=== PATIENT | female | born 2000 | race Caucasian/White ===

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

== ENCOUNTER 2020-10-07 15:18 | Outpatient (CLI) | payer BC ==
[2020-10-07 15:56] VITALS: BP 125/81; PULSE 100; TEMP 98
[2020-10-07 16:01] LABS: MONOSCREEN NEGATIVE
[2020-10-07] MEDS ORDERED: BUSPAR DIVIDOSE15 MG PO (16:01)
[2020-10-07] MEDS ORDERED: WELLBUTRIN XL150 MG PO (16:01)
[2020-10-07] MEDS ORDERED: AMBIEN 5MG TABLE5 MG PO (16:02)
[2020-10-07] MEDS ORDERED: ATARAX 25MG25 MG/TAB PO (16:02)
[2020-10-07] MEDS ORDERED: KLONOPIN 0.5MG0.5 MG PO (16:02)
[2020-10-07] MEDS ORDERED: PRIL40 PO (16:03)
[2020-10-07] MEDS ORDERED: ZOFRAN8 MG PO (16:03)
[2020-10-07 17:14] VITALS: BP 125/83; PULSE 98; TEMP 97.9
[2020-10-07 18:19] VITALS: BP 140/91; PULSE 107
[2020-10-15] MEDS ORDERED: APRI 0.15 MG-0.1 TAB PO (08:45)
[2020-10-15] MEDS ORDERED: VALTREX 50500 MG/TAB PO (08:46)
[2020-10-15] MEDS ORDERED: CENTRUM1 TA1 PO (08:46)
== END 2020-10-16 15:11 ==
LOC: EUO 15:18
PROVIDERS: Family Medicine
DX: E86.0 Dehydration (principal)
CPT/HCPCS: J7030

== ENCOUNTER 2020-10-15 08:19 | Day surgery (SDC) | payer BC ==
[~2020-10-15] VITALS: Ht 167.6 cm; Wt 104.6 kg
[~2020-10-15 08:19] MED LIST changes: +AMBIEN 5MG TABLE5 MG PO; +ATARAX 25MG25 MG/TAB PO; +BUSPAR DIVIDOSE15 MG PO; +KLONOPIN 0.5MG0.5 MG PO; +WELLBUTRIN XL150 MG PO; +ZOFRAN8 MG PO
[2020-10-15] MEDS ORDERED: APRI 0.15 MG-0.1 TAB PO (08:45)
[2020-10-15 08:46] VITALS: BP 139/92; PULSE 92; TEMP 98.6
[2020-10-15] MEDS ORDERED: VALTREX 50500 MG/TAB PO (08:46)
[2020-10-15] MEDS ORDERED: CENTRUM1 TA1 PO (08:46)
[2020-10-15 09:50] VITALS: BP 119/72; PULSE 89; TEMP 98
[2020-10-15 10:00] VITALS: BP 119/86; PULSE 86
[2020-10-15 10:15] VITALS: BP 124/85; PULSE 80
[2020-10-15 10:30] VITALS: BP 124/83; PULSE 82
--- NOTE | 2020-10-15 10:30 | NUR ---
0950 Pt returns from endo procedure via cart to [facility]. Pt ambulates from cart to recliner without complications. Monitors on and alarms set. Call light within reach. Report received from [facility]. Pt's mom in room. Pt requests muffin and water. No report of pain or nausea from pt. 1000 Pt taking food and drink well. No complications stated. 1015 Pt states nausea in the past few minutes and would like some medicine for this. 1030 Pt reports some improvement in nausea.
--- NOTE | 2020-10-15 10:53 | NUR ---
1045 Pt continues to feel better with the nausea lessening. Pt desires discharge. Discharge instructions given to pt and Mom. All questions answered to their satisfaction. Handed to them are a thank you card and discharge information. 1053 Pt transferred out of hospital via wheelchair and this RN assist to private vehicle driven by Mom.
== END 2020-10-15 10:53 | disposition home or self-care (01) ==
LOC: SDCO 08:19
DX: K29.30 Chronic superficial gastritis without bleeding (principal); K21.9 Gastro-esophageal reflux disease without esophagitis; R19.7 Diarrhea, unspecified; R19.4 Change in bowel habit; F32.9 Major depressive disorder, single episode, unspecified; Z90.49 Acquired absence of other specified parts of digestive tract; Z79.899 Other long term (current) drug therapy
CPT/HCPCS: J2405; J2704; J7030

== ENCOUNTER 2023-10-07 22:14 | Emergency (ER) | payer BC ==
[~2023-10-07] VITALS: Ht 167.6 cm; Wt 113.6 kg
[~2023-10-07 22:14] MED LIST changes: +APRI 0.15 MG-0.1 TAB PO; +CENTRUM1 TA1 PO; +VALTREX 50500 MG/TAB PO
[2023-10-07 22:21] VITALS: TEMP 98.2
[2023-10-07] MEDS ORDERED: Acetaminophen 500 MG TAB PO ONE (23:30)
[2023-10-07] MEDS ORDERED: Ibuprofen 400 MG TAB PO ONE (23:30)
[2023-10-07 23:59] VITALS: BP 110/81; PULSE 80
== END 2023-10-08 00:03 | disposition home or self-care (01) ==
LOC: COL.ER 22:14
DX: M25.571 Pain in right ankle and joints of right foot (principal); W10.9XXA Fall (on) (from) unspecified stairs and steps, initial encounter; Y92.009 Unspecified place in unspecified non-institutional (private) residence as the place of occurrence of the external cause
CPT/HCPCS: L4386